=== PATIENT | male | born 1960 | race African-American/Black ===

== ENCOUNTER 2019-05-23 05:51 | Day surgery (SDC) | payer BC ==
[~2019-05-23 05:51] MED LIST: LACTATED RINGERS 1,000 ML IV SCH
[2019-05-23] MEDS ORDERED: GABAPENTIN 300 MG CAP PO NR (06:00)
[2019-05-23] MEDS ORDERED: CELECOXIB 200 MG CAP PO NR (06:00)
[2019-05-23] MEDS ORDERED: MIDAZOLAM 2 MG/2 ML INJ IV NR (06:00)
[2019-05-23] MEDS ORDERED: BACTERIOSTATIC SODIUM CHLORIDE 0.9% 30 ML VIAL INFILTRATI ONE (06:32)
[2019-05-23] MEDS ORDERED: fentaNYL 250 MCG/5 ML INJ ONE (07:13)
[2019-05-23] MEDS ORDERED: PROPOFOL 200 MG/20 ML VIAL IV ONE (07:13)
[2019-05-23] MEDS ORDERED: LIDOCAINE (1%) 10 MG/1 ML VIAL 20 ML MDV ONE (07:14)
[2019-05-23] MEDS ORDERED: BUPIVACAINE/PF (0.5%) 5 MG/1 ML 30 ML VIAL INFILTRATI ONE ×2 (07:14→08:38)
[2019-05-23] MEDS ORDERED: LIDOCAINE MPF (2%) 20 MG/1 ML VIAL 5 ML ONE (07:16)
[2019-05-23] MEDS ORDERED: ROCURONIUM 50 MG/5 ML INJ IV ONE (07:16)
[2019-05-23] MEDS ORDERED: ceFAZolin/STERILE WATER 2 GM/20 ML SYRINGE IV NR (07:17)
[2019-05-23] MEDS ORDERED: HYDROmorphone 1 MG/1 ML INJ IV PRN (07:24)
--- NOTE | 2019-05-23 07:25 | Anesthesia Consultation ---
Anesthesia Consult and Med Hx Date of service: 05/23/19 - Airway Anesthetic Teeth Evaluation: Good ROM Head & Neck: Adequate Mental/Hyoid Distance: Adequate Mallampati Class: Class III Intubation Access Assessment: Possibly Difficult - Pulmonary Exam CTA: Yes - Cardiac Exam Cardiac Exam: RRR - Pre-Operative Health Status ASA Pre-Surgery Classification: ASA1 Proposed Anesthetic Plan: General - Pulmonary Hx Smoking: No Hx Respiratory Symptoms: No - Cardiovascular System Hx Hypertension: No (HLD) Hx Heart Attack/AMI: No - Central Nervous System CVA: No - Gastrointestinal Hx Gastroesophageal Reflux Disease: No - Endocrine Hx Renal Disease: No Hx Liver Disease: No Hx Insulin Dependent Diabetes: No Hx Non-Insulin Dependent Diabetes: No Hx Thyroid Disease: No - Other Systems Hx Obesity: No - Additional Comments Anesthesia Medical History Comments: No hx anesthetic complications.
--- NOTE | 2019-05-23 07:26 | Anesthesia Day of Surgery ---
Anesthesia Day of Surgery - Day of Surgery Patient Examined: Yes Patient H&P Reviewed: Yes Patient is NPO: Yes
[2019-05-23] MEDS ORDERED: LIDOCAINE (1%) 10 MG/1 ML VIAL 20 ML MDV INFILTRATI ONE (08:38)
[2019-05-23] MEDS ORDERED: SODIUM CHLORIDE 0.9% IRR 1,500 ML BOTTLE IR ONE (08:39)
[2019-05-23] MEDS ORDERED: ONDANSETRON 4 MG/2 ML INJ ONE (08:47)
[2019-05-23] MEDS ORDERED: dexAMETHasone 20 MG/5 ML VIAL ONE (08:47)
[2019-05-23] MEDS ORDERED: LACTATED RINGERS 1,000 ML ONE (09:04)
[2019-05-23] MEDS ORDERED: NEOSTIGMINE 10MG/10 ML INJ MDV ONE (09:10)
[2019-05-23] MEDS ORDERED: GLYCOPYRROLATE 0.4 MG/2 ML INJ ONE (09:10)
--- NOTE | 2019-05-23 09:20 | Short Stay Summary ---
Short Stay Documentation Date of service: 05/23/19 - History Principal diagnosis: LEFT inguinal hernia H&P: obtained from office - Allergies and Medications Current Medications: Allergies No Known Allergies Allergy (Verified 05/23/19 06:33) Home Medications Medication Instructions Recorded Confirmed Last Taken Type Simvastatin 1 tab PO HS 05/22/19 05/23/19 05/16/19 History Active Medications Cefazolin Sodium (Ancef/Sterile Water 2 Gm/20 Ml) 2 gm IV PREOP NR Stop: 05/23/19 12:00 Celecoxib (Celebrex) 200 mg PO PREOP NR Stop: 05/23/19 16:00 Last Admin: 05/23/19 07:05 Dose: 200 mg Documented by: Gabapentin (Gabapentin) 300 mg PO PREOP NR Stop: 05/23/19 16:00 Last Admin: 05/23/19 07:05 Dose: 300 mg Documented by: Hydromorphone HCl (Dilaudid) 0.5 mg IV Q10MIN PRN PRN Reason: Pain , Severe (7-10) Stop: 05/23/19 22:00 Lactated Ringer's (Lactated Ringers) 1,000 mls @ 100 mls/hr IV DIRECT JESUS Last Admin: 05/23/19 06:33 Dose: 100 mls/hr Documented by: Midazolam HCl (Versed) 2 mg IV PREOP NR Stop: 05/23/19 23:00 - Brief post op/procedure progress note Date of procedure: 05/23/19 Pre-op diagnosis: left inguinal hernia Post-op diagnosis: same Procedure: robotic assisted left inguinal hernia repair with mesh Anesthesia: GETA, local Findings: direct hernia Surgeon: ANNALISE LONDON Jack Prizer: JOSE DENG Estimated blood loss: minimal Pathology: none Condition: stable - Hospital course Hospital course: Pt observed in PACU and discharged to home in stable condition. - Disposition Condition at discharge: Good Disposition: DC-01 TO HOME OR SELFCARE Short Stay Discharge Plan Activity: other (no heavy lifting) Diet: regular Wound: open to air Additional Instructions: SEE PRINTED DISCHARGE INSTRUCTIONS Follow up with: LY LARIOS [Other] - 7 Days ANNALISE LONDON DO [Staff Physician] - 14 Days Prescriptions: HYDROcodone/APAP 5-325 [[place] 5/325] 1 each PO Q4HR PRN #15 tablet PRN Reason: Pain
[2019-05-23 10:08] VITALS: BP 131/74
--- NOTE | 2019-05-23 13:37 | Post Anesthesia Evaluation ---
- Post Anesthesia Evaluation Patient Participated: Yes Airway Patent: Yes Stable Respiratory Function: Yes Nausea/Vomiting: No Temp > 96.8F: Yes Pain Manageable: Yes Adequeate Hydration: Yes Anesthesia Complications: No
--- NOTE | 2019-05-29 09:46 | Operative Report ---
Operative Report Operative Report: Date of procedure: 05/23/19 Pre-op diagnosis: left inguinal hernia Post-op diagnosis: same Procedure: robotic assisted left inguinal hernia repair with mesh Anesthesia: GETA, local Findings: direct hernia Surgeon: ANNALISE LONDON Pattern Checker: JOSE DENG Estimated blood loss: minimal Pathology: none Condition: stable - Hospital course Hospital course: Pt observed in PACU and discharged to home in stable condition. HPI and indication: 59 yo [place] speaking male presented to the clinic for evaluation of bulge in Left groin. Patient has hx of Lap right inguinal hernia repair with mesh. He was found to have a reducible left inguinal hernia with symptoms of pain. Surgical repair was recommended. All risks, benefits, alternatives to surgery were discussed with the patient using the [employer] hydraulic jack adjuster. Questions were answered and consent obtained for robotic assisted left inguinal hernia repair with mesh. Procedure in detail: Pt was identified in the preoperative area and site marked. He was taken back to the operating room and placed on the operating room table in supine position. After anesthesia was induced, a strauss catheter was steriley placed by the circulating nurse. The abdomen and left groin were prepped and draped in the usual sterile fashion and time out performed. The skin at each incision site was anesthetized with local anesthetic. A supraumbilical incision was made using a 11 blade through which a veress needle was inserted. The positioning was confirmed using saline drop test and abdomen insufflated to 15mmHg. Once the abdomen was insufflated the veress needle was removed and a 12 mm balloon trocar using optiview technique was inserted through the incision. The abdomen was inspected and there was no underlying injury to the abdominal structures. The patient was placed in trendeleberg position and the left inguinal hernia seen. The right sided repair was intact. 2- 8mm robotic trocars were placed under direct visualization, on in the RUQ and one in the LUQ. The robot was then docked and the surgeon moved to the console. A robotic scissors was placed in arm 1 and fenestrated bipolar in arm 2. A preperitoneal flap was created approximately 6 cm from the hernia. This was done by scoring the peritoneum from the median umbilical ligament to the ASIS and then creating a flap in an avascular plane. The lateral space was created and then the medial space until the pubic tubercle/coopers ligament was identified. These structures were cleared of overlying tissue. I then turned my attention to reducing the hernia. There was only a direct hernia. The sac was reduced. The cord structures were identified and protected. There was no cord lipoma. Once the peritoneum was reduced, the surgical bed was checked for hemostasis which was carefully ensured. A large left sided 3D max mesh was chosen to repair the hernia. This along with suture material was placed into the abdomen via 12 mm port by the certified registered dental assistant surgeon. The mesh was placed into the pocket in the standard fashion with excellent coverage. The mesh was sutured to the pubic tubercle and the lateral abdominal wall using interrupted 2-0 vicryl suture. The peritoneum was reapproximated using 3-0 vloc running suture. The robot was then undocked and the surgeon scrubbed back in. The remainder of the case was performed laparoscopically. The 12 mm port fascia was closed using interrupted 0-vicryl suture using the Minh Stevens device. The 8 mm ports were removed under direct visualization and the abdomen desufflated. The scrotum was evacuated of CO2. The skin incisions were once again infiltrated with local anesthetic and skin closed using 4-0 monocryl subcuticular stitches and skin glue. At the end of the case, all sponge, instrument, sharp counts were correct x 2. The strauss catheter was removed and both testicles were palpated in the scrotum. The patient was awoken from anesthesia, extubated, and taken to PACU in stable condition.
== END 2019-05-23 11:25 | disposition home or self-care (01) ==
LOC: OR 05:51
PROVIDERS: ATTEND Surgery
DX: K40.90 Unilateral inguinal hernia, without obstruction or gangrene, not specified as recurrent (principal); E78.00 Pure hypercholesterolemia, unspecified; I10 Essential (primary) hypertension; F17.210 Nicotine dependence, cigarettes, uncomplicated; Z98.890 Other specified postprocedural states; Z79.899 Other long term (current) drug therapy
CPT/HCPCS: 49650; C1781; J0690; J1100; J1170; J2405; J2704; J2710; J3010; J7120; S2900; J2250